=== PATIENT | male | born 1990 | race Caucasian/White ===

== ENCOUNTER 2022-05-12 10:14 | Emergency (ER) | payer OTHER ==
[~2022-05-12] VITALS: Ht 193 cm; Wt 120.2 kg
[2022-05-12 10:23] VITALS: BP 131/81
[2022-05-12] MEDS ORDERED: LIDOCAINE 1%-EPI 1:100,000 50 ML VIAL IJ ONE (11:30)
[2022-05-12] MEDS ORDERED: IBUPROFEN 400 MG TABLET PO ONE (11:30)
[2022-05-12] MEDS ORDERED: LIDOCAINE 1%-EPI 1:100,000 20 ML VIAL ONE (12:06)
[2022-05-12] MEDS ORDERED: IBUPROFEN 400 MG TABLET ONE (12:07)
[2022-05-12] MEDS ORDERED: CEPH500C2 PO (12:44)
[2022-05-12] MEDS ORDERED: SULF1TAB48 PO (12:44)
--- NOTE | 2022-05-12 12:45 | NUR ---
Patient discharged to home in stable condition. Written and verbal after care instructions given. Patient verbalizes understanding of instruction.
[2022-05-15] MEDS ORDERED: CEPH500C2 PO (10:55)
[2022-05-15] MEDS ORDERED: SULF1TAB48 PO (10:55)
== END 2022-05-12 13:24 | disposition home or self-care (01) ==
LOC: ER 10:14
DX: M27.2 Inflammatory conditions of jaws (principal)
CPT/HCPCS: 99283; 10060; 87070; J3490 ×2